=== PATIENT | male | born 1960 | race Caucasian/White ===

== ENCOUNTER 2023-04-23 09:09 | Outpatient (CLI) | payer BC ==
[2023-04-23 10:31] LABS: HEMATOCRIT 42.3 % (39.0-48.0); HEMOGLOBIN 14.6 g/dL (13-16.00); MEAN CELL VOLUME 95.7 fL (80.0-100.00); MEAN CORPUSCULAR HGB CONC 34.5 g/dl (32.0-36.0); PH,URINE 5.5 (5.0-8.0); PLATELET COUNT 171 K/uL (150-450); RED BLOOD COUNT 4.42 M/uL (4.00-6.00); RED CELL DISTRIBUTION WIDTH 13.6 % (11.5-14.5); URINE APPEARANCE Clear; URINE BILIRRUBIN Negative (NEGATIVE); URINE BLOOD Trace; URINE COLOR Yellow; URINE GLUCOSE Negative (NEGATIVE); URINE LEUKOCYTE Negative; URINE NITRATE Negative; URINE PROTEIN Negative (NEGATIVE)
[2023-04-23 10:35] LABS: URINE EPITHELIAL CELLS 1.8 uL (0.0-38.8); URINE RBC 2.4 uL (0.0-20.8); URINE WBC 3.3 uL (0.0-23.2)
[2023-04-23 11:10] LABS: INR 1.02; PARTIAL THROMBOPLASTIN TIME 28.5 SECONDS (22.0-34.0); PROTHROMBIN TIME 10.7 SECONDS (9.0-11.5)
[2023-04-23 11:17] LABS: ALBUMIN 3.8 gm/dL (3.4-5.0); BILIRUBIN TOTAL 0.56 mg/dL (0.3-1.2); CALCIUM 9.2 mg/dL (8.5-10.1); GFR 75.23; GLOBULINA 4.5 G/DL (2.4-3.5); POTASSIUM 4.28 mEq/L (3.5-5.1); TOTAL PROTEIN 8.3 gm/dL (6.4-8.2)
== END 2023-04-23 13:54 | disposition home or self-care (01) ==
LOC: LAB 09:09
DX: Z01.818 Encounter for other preprocedural examination (principal); H53.9 Unspecified visual disturbance

== ENCOUNTER → 2024-06-06 08:22 | Outpatient (CLI) | payer OTHER ==
[2024-06-06 09:01] LABS: HEMATOCRIT 41.3 % (39.0-48.0); HEMOGLOBIN 14.2 g/dL (13-16.00); MEAN CELL VOLUME 96.2 fL (80.0-100.00); MEAN CORPUSCULAR HEMOGLOBIN 33.1 pg (27.00-32.0); MEAN CORPUSCULAR HGB CONC 34.4 g/dl (32.0-36.0); PLATELET COUNT 186 K/uL (150-450); RED BLOOD COUNT 4.29 M/uL (4.00-6.00); RED CELL DISTRIBUTION WIDTH 13.8 % (11.5-14.5)
[2024-06-06 09:03] LABS: PH,URINE 5.5 (5.0-8.0); URINE APPEARANCE Clear; URINE BILIRRUBIN Negative (NEGATIVE); URINE BLOOD Negative; URINE COLOR Yellow; URINE GLUCOSE Negative (NEGATIVE); URINE KETONE Negative (NEGATIVE); URINE LEUKOCYTE Negative; URINE NITRATE Negative; URINE PROTEIN Negative (NEGATIVE)
[2024-06-06 09:07] LABS: URINE BACTERIA 4.8 uL (0.0-1933); URINE EPITHELIAL CELLS 1.2 uL (0.0-38.8); URINE RBC 1.6 uL (0.0-20.8); URINE WBC 1.8 uL (0.0-23.2)
[2024-06-06 10:01] LABS: ALBUMIN 3.6 gm/dL (3.4-5.0); BILIRUBIN TOTAL 0.56 mg/dL (0.3-1.2); CALCIUM 9.3 mg/dL (8.5-10.1); CHOL HDL RATIO 4.3 (0-5.0); CREATININE SERUM 0.89 mg/dL (0.70-1.30); GFR 85.79; GLOBULINA 4.4 G/DL (2.4-3.5); POTASSIUM 4.28 mEq/L (3.5-5.1); PROSTATIC SPECIFIC ANTIGEN 1.88 NG/ML (0.010-4.00); TSH 1.42 uIU/mL (0.358-3.74)
== END | disposition home or self-care (01) ==
LOC: LAB 08:22
PROVIDERS: ATTEND Internal Medicine
DX: E03.9 Hypothyroidism, unspecified (principal); E11.21 Type 2 diabetes mellitus with diabetic nephropathy; N39.9 Disorder of urinary system, unspecified; N40.1 Benign prostatic hyperplasia with lower urinary tract symptoms; D40.0 Neoplasm of uncertain behavior of prostate; E78.2 Mixed hyperlipidemia; E11.65 Type 2 diabetes mellitus with hyperglycemia; D64.9 Anemia, unspecified; E55.9 Vitamin D deficiency, unspecified; I10 Essential (primary) hypertension

== ENCOUNTER 2024-06-07 16:37 | Outpatient (CLI) | payer OTHER ==
[2024-06-07 17:02] LABS: ob NEGATIVE (NEGATIVE)
== END 2024-06-07 16:40 | disposition home or self-care (01) ==
LOC: LAB 16:37
PROVIDERS: ATTEND Internal Medicine
DX: E03.9 Hypothyroidism, unspecified (principal); E11.21 Type 2 diabetes mellitus with diabetic nephropathy; N39.9 Disorder of urinary system, unspecified; N40.1 Benign prostatic hyperplasia with lower urinary tract symptoms; D40.0 Neoplasm of uncertain behavior of prostate; E78.2 Mixed hyperlipidemia; E11.65 Type 2 diabetes mellitus with hyperglycemia; Z12.11 Encounter for screening for malignant neoplasm of colon; D64.9 Anemia, unspecified; E55.9 Vitamin D deficiency, unspecified

== ENCOUNTER 2024-06-14 12:51 | Outpatient (CLI) | payer OTHER | END 2024-06-14 13:02 | disposition home or self-care (01) | LOC: TOM 12:51 | PROVIDERS: ATTEND Internal Medicine Pulmonary Disease | DX: R04.2 Hemoptysis (principal); J43.2 Centrilobular emphysema ==

== ENCOUNTER 2024-10-12 15:34 | Outpatient (CLI) | payer OTHER | END 2024-10-12 15:36 | disposition home or self-care (01) | LOC: TOM 15:34 | PROVIDERS: ATTEND Internal Medicine Pulmonary Disease | DX: J43.2 Centrilobular emphysema (principal); R91.8 Other nonspecific abnormal finding of lung field; R04.2 Hemoptysis ==

== ENCOUNTER 2024-11-21 07:12 | Outpatient (CLI) | payer OTHER | END 2024-11-21 07:15 | disposition home or self-care (01) | LOC: NUCLEAR 07:12 | PROVIDERS: ATTEND Internal Medicine Pulmonary Disease | DX: R91.1 Solitary pulmonary nodule (principal) | CPT/HCPCS: 78816; A9552 ==

== ENCOUNTER → 2025-01-10 11:49 | Outpatient (CLI) | payer OTHER | END | disposition home or self-care (01) | LOC: NUCLEAR 12-26 10:00 | DX: M85.80 Other specified disorders of bone density and structure, unspecified site (principal); M81.0 Age-related osteoporosis without current pathological fracture ==

== ENCOUNTER 2025-01-10 14:20 | Outpatient (CLI) | payer OTHER | END 2025-01-10 14:22 | disposition home or self-care (01) | LOC: TOM 14:20 | PROVIDERS: ATTEND Orthopaedic Surgery | DX: S32.601A Unspecified fracture of right ischium, initial encounter for closed fracture (principal) ==

== ENCOUNTER 2025-01-26 09:57 | Outpatient (CLI) | payer OTHER ==
[2025-01-26 10:25] LABS: BASO % 0.4 % (0.1-1.2); EOS # 0.11 (0.04-0.54); EOS % 2.0 % (0.7-7.0); LYMPH # 1.44 (1.18-3.74); LYMPH % 26.5 % (19.3-53.1); MEAN PLATELET VOLUME 10.40 fl (9.4-12.4); MONO # 0.65 (0.24-0.82); MONO % 12.0 % (4.7-12.5); NEUT # 3.19 (1.56-6.13); NEUT % 58.7 % (34.0-71.1); RED CELL DISTRIBUTION WIDTH 12.2 % (11.6-14.4)
[2025-01-26 10:32] LABS: URINE APPEARANCE Clear; URINE BILIRRUBIN Negative (NEGATIVE); URINE BLOOD Negative; URINE COLOR Dark Yellow; URINE GLUCOSE Negative (NEGATIVE); URINE KETONE Trace (NEGATIVE); URINE LEUKOCYTE Negative; URINE NITRATE Negative; URINE PROTEIN Negative (NEGATIVE); URINE UROBILINOGEN 1.0 E.U./dl
[2025-01-26 10:36] LABS: URINE BACTERIA 4.7 uL (0.0-1933); URINE EPITHELIAL CELLS 3.3 uL (0.0-38.8); URINE RBC 8.3 uL (0.0-20.8); URINE WBC 3.2 uL (0.0-23.2)
[2025-01-26 10:54] LABS: INR 1.08
[2025-01-26 11:09] LABS: URINE CAST 0.29 uL (0.0-1.40)
[2025-01-26 11:25] LABS: BUN CREA RATIO 12.0 (7.0-25.0); CREATININE SERUM 1.07 mg/dL (0.70-1.30); GFR 69.14; GLUCOSE FASTING 87.0 mg/dL (65-100); OSMOLALITY SERUM 279.0 MOSM/KG (275-295)
== END 2025-01-26 09:58 | disposition home or self-care (01) ==
LOC: LAB 09:57
DX: H53.9 Unspecified visual disturbance (principal); R79.1 Abnormal coagulation profile

== ENCOUNTER 2025-02-01 09:52 | Outpatient (CLI) | payer OTHER | END 2025-02-01 09:59 | disposition home or self-care (01) | LOC: EKG 09:52 | PROVIDERS: ATTEND Internal Medicine | DX: Z01.810 Encounter for preprocedural cardiovascular examination (principal) ==